=== PATIENT | female | born 1985 | race African-American/Black ===

== ENCOUNTER 2017-08-25 12:36 | Emergency (ER) | payer MEDICAID, OTHER ==
[~2017-08-25] VITALS: Ht 165.1 cm; Wt 54.0 kg
[2017-08-25] MEDS ORDERED: KETOROLAC 15MG/ML VIAL IM ONE (13:15)
[2017-08-25 13:16] VITALS: BP 118/83
== END 2017-08-25 14:39 | disposition home or self-care (01) ==
LOC: ER 12:52
DX: S43.101A Unspecified dislocation of right acromioclavicular joint, initial encounter (principal); Z88.0 Allergy status to penicillin; W17.89XA Other fall from one level to another, initial encounter; Y93.89 Activity, other specified; Y99.8 Other external cause status; Y92.89 Other specified places as the place of occurrence of the external cause
CPT/HCPCS: 73000; 81025; 96372; 99284; J1885; A4565

== ENCOUNTER 2019-11-11 02:43 | Emergency (ER) | payer MEDICAID, OTHER ==
[~2019-11-11] VITALS: Ht 165.1 cm; Wt 54.6 kg
[2019-11-11] MEDS ORDERED: HYDROCODONE/ACETAMINOPHEN 5/325MG TABLET PO ONE (08:30)
[2019-11-11] MEDS ORDERED: ONDANSETRON 4MG ODT PO ONE (09:00)
[2019-11-11 09:19] LABS: BASOPHILS % 0.8 % (0.0-2.0); EOSINOPHILS % 4.9 % (0.0-5.0); HEMATOCRIT. 34.1 % (36.0-48.0); HEMOGLOBIN. 10.8 g/dL (12.0-16.0); LYMPHOCYTES % 29.8 % (20.0-50.0); MEAN CORPUSCULAR HEMOGLOBIN 24.5 pg (28.0-32.0); MEAN CORPUSCULAR VOLUME 76.9 fL (81.0-99.0); MEAN PLATELET VOLUME 8.7 fl (7.4-10.4); MONOCYTES % 7.9 % (2.0-8.0); NEUTROPHILS % 56.6 % (40.0-76.0); PLATELET 178 x1000/uL (130-400); RED BLOOD CELL COUNT 4.43 mill/uL (4.2-5.4); RED CELL DISTRIBUTION WIDTH 14.8 % (11.6-14.6)
[2019-11-11 09:28] LABS: CHLORIDE 109 mEq/L (98-107)
[2019-11-11 09:33] LABS: HCG SCREEN NEGATIVE
[2019-11-11] MEDS ORDERED: KETOROLAC 30MG/ML VIAL IM ONE (12:00)
[2019-11-11] MEDS ORDERED: KETOROLAC 30MG/ML VIAL IV STA (12:08)
[2019-11-11] MEDS ORDERED: SODIUM CHLORIDE 0.9% 1,000 ML IV ONE (12:08)
[2019-11-11] MEDS ORDERED: METOCLOPRAMIDE HCL 10MG/2ML VIAL IV ONE (12:15)
[2019-11-11] MEDS ORDERED: DIPHENHYDRAMINE 50MG/ML VIAL IV ONE (12:15)
[2019-11-11 13:42] LABS: CLARITY URINE CLEAR (CLEAR); COLOR URINE YELLOW (YELLOW); KETONES URINE TRACE (NEGATIVE); LEUKOCYTE ESTERASE URINE TRACE (NEGATIVE); NITRITE URINE NEGATIVE (NEGATIVE); OCCULT BLOOD URINE NEGATIVE (NEGATIVE); PH URINE 5.5 (4.5-8.0); PROTEIN URINE NEGATIVE (NEGATIVE); SPECIFIC GRAVITY URINE 1.009 (1.005-1.030); UROBILINOGEN URINE 0.2 E.U./dL (0.2-1.0)
[2019-11-11 15:30] VITALS: BP 121/76
== END 2019-11-11 16:02 | disposition home or self-care (01) ==
LOC: ER 02:43
DX: R51 Headache (principal); D64.9 Anemia, unspecified; F12.10 Cannabis abuse, uncomplicated; Z98.51 Tubal ligation status; M79.7 Fibromyalgia; Z88.0 Allergy status to penicillin
CPT/HCPCS: 36415; 70450; 80053; 81003; 81025; 84703; 85025; 96361; 96374; 96375; 99284; J1200; J1885; J2765; J7030; Q0162; Z7610

== ENCOUNTER 2020-01-01 19:17 | Emergency (ER) | payer OTHER ==
[~2020-01-01] VITALS: Ht 167.6 cm; Wt 60.0 kg
[2020-01-01] MEDS ORDERED: SODIUM CHLORIDE 0.9% 1,000 ML IV ONE (19:54)
[2020-01-01] MEDS ORDERED: KETOROLAC 30MG/ML VIAL IV STA (19:54)
[2020-01-01] MEDS ORDERED: DIPHENHYDRAMINE 50MG/ML VIAL IV ONE (20:00)
[2020-01-01] MEDS ORDERED: METOCLOPRAMIDE HCL 10MG/2ML VIAL IV ONE (20:00)
[2020-01-01 20:23] VITALS: BP 131/91
[2020-01-01 20:28] LABS: CLARITY URINE CLEAR (CLEAR); COLOR URINE YELLOW (YELLOW); KETONES URINE NEGATIVE (NEGATIVE); LEUKOCYTE ESTERASE URINE TRACE (NEGATIVE); NITRITE URINE NEGATIVE (NEGATIVE); OCCULT BLOOD URINE NEGATIVE (NEGATIVE); PH URINE 7.5 (4.5-8.0); PROTEIN URINE NEGATIVE (NEGATIVE); SPECIFIC GRAVITY URINE 1.009 (1.005-1.030); UROBILINOGEN URINE 0.2 E.U./dL (0.2-1.0)
[2020-01-01 21:06] LABS: *AMPHETAMINES SCREEN URINE NEGATIVE (NEGATIVE)
[2020-01-01 21:07] LABS: *BARBITURATES SCREEN URINE NEGATIVE (NEGATIVE); *BENZODIAZEPINES SCREEN URINE NEGATIVE (NEGATIVE); *COCAINE SCREEN URINE NEGATIVE (NEGATIVE); METHADONE URINE SCREEN NEGATIVE (NEGATIVE); OPIATES URINE SCREEN NEGATIVE (NEGATIVE); PHENCYCLIDINE URINE SCREEN NEGATIVE (NEGATIVE)
[2020-01-01 21:16] LABS: CANNABINOID URINE SCREEN PRESUMTIVE POSITIVE (NEGATIVE)
== END 2020-01-01 21:00 | disposition home or self-care (01) ==
LOC: ER 19:17
DX: G43.909 Migraine, unspecified, not intractable, without status migrainosus (principal); F12.10 Cannabis abuse, uncomplicated; Z88.0 Allergy status to penicillin
CPT/HCPCS: 80305; 81003; 81025; 82962; 87077; 87086; 96374; 96375; 99284; J1200; J1885; J2765; J7030